=== PATIENT | female | born 1965 | race African-American/Black ===

== ENCOUNTER 2019-12-18 19:12 | Emergency (ER) | payer OTHER, SELFPAY ==
[2019-12-18 19:29] VITALS: BP 130/90; PULSE 88; RESP 18; TEMP 37.7; O2SAT 98
--- NOTE | 2019-12-18 19:56 | ED.LOWEXIN ---
HPI - Extremity Injury (Lower) General Chief Complaint: Extremity Injury, Lower Stated Complaint: Gout;Sinus Infection Time Seen by Provider: 12/18/19 19:48 Source: patient and RN notes reviewed Mode of arrival: ambulatory Limitations: no limitations History of Present Illness HPI Narrative: Patient presents today complaining of possible gout to the left great toe x2 days. Patient has history of gout, but has not had a flare in many years. She does note that catfish is a trigger for her gout, but ate some a few days ago anyway. She currently rates her pain 8/10 and has tried no [id number]-[id number] treatment prior to arrival. She also states that she has had some postnasal drip leading to a cough x3 days. Denies fever, shortness of breath, or any other symptoms. She has had a recent COVID test that was negative. She has to get tested weekly at her job at the [employer]. Related Data Home Medications Medication Instructions Recorded Confirmed aspirin 12/18/19 furosemide 12/18/19 lisinopril 12/18/19 metoprolol tartrate 12/18/19 Allergies Allergy/AdvReac Type Severity Reaction Status Date / Time No Known Allergies Allergy Verified 05/28/17 18:05 Review of Systems Review of Systems: Narrative: CONSTITUTIONAL: Denies body aches, fever, chills, or sweats. EYES: Denies visual changes, redness, or discharge. ENT: Denies rhinorrhea, congestion, sore throat, or otalgia.+ Postnasal drip CARDIOVASCULAR: Denies chest pain, palpitations, or edema. RESPIRATORY: Denies cough or dyspnea. GASTROINTESTINAL: Denies abdominal pain, nausea, vomiting, or diarrhea. GENITOURINARY: Denies dysuria or hematuria. SKIN: Denies rash, itching, or wounds. MUSCULOSKELETAL: Denies back pain, or myalgia. + Pain, swelling, and redness to the base of the left great toe. NEUROLOGIC: Denies headache, numbness, tingling, or weakness. PSYCH: Denies depression or anxiety. [facility] Past Medical History Medical History (Updated 12/18/19 @ 20:01 by Kassie Lerma, KETTLE CHIPPER, ) Congestive heart failure History of gout Hypertension Comments At time of signature, I have reviewed and agree with nursing past medical, surgical, social and family history unless otherwise noted. Please see nursing chart for further information. There is no relevant family history pertinent to the presenting complaint Exam Narrative: Exam Narrative: GENERAL: Well-appearing, over-nourished, and in no acute distress. HEAD: Normocephalic, atraumatic. EYES: EOMI. No redness or drainage. Conjunctivae normal. ENT: Mucous membranes pink and moist. Nares clear. No rhinorrhea. TMs normal bilaterally. Throat normal. Mild amount of postnasal drainage. Uvula midline. NECK: Normal AROM. Supple. No lymphadenopathy. CHEST: No respiratory distress. Clear to auscultation. HEART: Regular rate and rhythm. No murmur appreciated. Normal peripheral pulses. EXTREMITIES: Mild redness and edema to the base of the left great toe. Tender to palpation. Distal sensation intact. Capillary refill normal. Full range of motion with increased pain. No tenderness to the remainder of the foot or toes. SKIN: Warm, dry, no rash. Capillary refill normal. Normal skin turgor. NEURO: No focal deficits. Alert and oriented x3. Gait steady. PSYCH: Normal affect. No signs of depression or anxiety. Course Vital Signs Vital signs: Vital Signs Temperature 99.8 F H 12/18/19 19:29 Pulse Rate 88 12/18/19 19:29 Respiratory Rate 18 12/18/19 19:29 Blood Pressure 130/90 12/18/19 19:29 Pulse Oximetry 98 12/18/19 19:29 Temperature 99.8 F H 12/18/19 19:29 Pulse Rate 88 12/18/19 19:29 Respiratory Rate 18 12/18/19 19:29 Blood Pressure 130/90 12/18/19 19:29 Pulse Oximetry 98 12/18/19 19:29 Reviewed. Pt has been instructed to follow up with her PCP regarding her elevated blood pressure today. MDM - Extremity Injury (Lower) Differential Diagnosis Diffe
== END 2019-12-18 20:02 | disposition home or self-care (01) ==
PROVIDERS: Emergency Provider Nurse Practitioner; PCP Family Medicine
DX: M10.9 Gout, unspecified (principal); J30.9 Allergic rhinitis, unspecified; I10 Essential (primary) hypertension; I11.0 Hypertensive heart disease with heart failure; I50.9 Heart failure, unspecified
CPT/HCPCS: 99213; G0463

== ENCOUNTER 2019-12-30 19:08 | Emergency (ER) | payer OTHER, SELFPAY ==
--- NOTE | 2019-12-30 19:19 | ED.GENADULT ---
HPI - General Adult General Chief complaint: Upper Respiratory Infection Stated complaint: upper respiratory infection Time Seen by Provider: 12/30/19 19:19 Source: patient and RN notes reviewed Mode of arrival: ambulatory Limitations: no limitations History of Present Illness HPI narrative: This is a 54 years old female presents to the office for an evaluation of cough for one week. Cough is the same; has not worsen. She also reports sinus drainage with ears fullness. She tries Zyrtec with no relief. She has tested for COVID last week and it was negative. She did not take prednisone because she worries about lowering her immune system. I reviewed patient's previous visit. HPI - Extremity Injury (Lower) General Chief Complaint: Extremity Injury, Lower Stated Complaint: Gout;Sinus Infection Time Seen by Provider: 12/18/19 19:48 Source: patient and RN notes reviewed Mode of arrival: ambulatory Limitations: no limitations History of Present Illness HPI Narrative: Patient presents today complaining of possible gout to the left great toe x2 days. Patient has history of gout, but has not had a flare in many years. She does note that catfish is a trigger for her gout, but ate some a few days ago anyway. She currently rates her pain 8/10 and has tried no [id number]-pdz-pzqtzil treatment prior to arrival. She also states that she has had some postnasal drip leading to a cough x3 days. Denies fever, shortness of breath, or any other symptoms. She has had a recent COVID test that was negative. She has to get tested weekly at her job at the [employer]. Related Data Home Medications Medication Instructions Recorded Confirmed aspirin 12/18/19 furosemide 12/18/19 lisinopril 12/18/19 metoprolol tartrate 12/18/19 Allergies Allergy/AdvReac Type Severity Reaction Status Date / Time No Known Allergies Allergy Verified 05/28/17 18:05 Review of Systems Review of Systems: Narrative: CONSTITUTIONAL: Denies fever, chills ENT: Reports stuffy nose, sinus congestion and ears fullness. Denies sore throat. CARDIOVASCULAR: Denies chest pain, palpitation RESPIRATORY: Denies dyspnea, wheezing. Reports cough contribute to drainage GASTROINTESTINAL: Denies abdominal pain, nausea, vomiting, diarrhea. SKIN: Denies rash MUSCULOSKELETAL: Denies acute back pain NEUROLOGIC: Denies lightheaded All other systems reviewed are negative, except as documented in HPI. [facility] Past Medical History Medical History Congestive heart failure History of gout Hypertension Comments At time of signature, I agree with nursing past medical, surgical, social and family history. There is no relevant family history pertinent to the presenting complaint. Exam Narrative: Exam Narrative: GENERAL: This is a well-nourished, well-developed patient, in no apparent distress. Obese EYES: Sclera clear/white. Vision is grossly intact. EARS: External ears normal, auditory canals clear and without drainage, TMs normal without perforation, fluid bubbles noted. Hearing grossly intact. NOSE: External nose normal with no obvious nasal discharge, nares without redness, no rhinorrhea. THROAT: Mucous membranes moist, posterior pharynx not erythema/edematous with drainage. NECK: Neck supple, non-tender without lymphadenopathy, masses or thyromegaly. CARDIOVASCULAR: Regular rate and rhythm without murmurs, gallops, or rubs. RESPIRATORY: Clear to auscultation. Breath sounds equal bilaterally. No wheezes, rales, or rhonchi. GASTROINTESTINAL: Abdomen soft, non-tender, nondistended. Bowel sounds are active. No guarding. SKIN: warm, intact with no suspicious lesions or rash, good texture and turgor. NEURO: awake, alert, and oriented to person, place and time. There were no obvious focal neurologic abnormalities. Steady gait [place] Coma Scale Eye Opening: Spontaneous 4 [place] Coma Scale Motor: [employer]
[2019-12-30 19:21] VITALS: BP 144/80; PULSE 86; RESP 16; TEMP 36.4; O2SAT 100
== END 2019-12-30 19:41 | disposition home or self-care (01) ==
PROVIDERS: Emergency Provider Nurse Practitioner; PCP Family Medicine
DX: J01.41 Acute recurrent pansinusitis (principal); I11.0 Hypertensive heart disease with heart failure; I50.9 Heart failure, unspecified; M10.9 Gout, unspecified
CPT/HCPCS: 99213; G0463

== ENCOUNTER 2020-01-30 16:28 | Emergency (ER) | payer OTHER, SELFPAY ==
--- NOTE | 2020-01-30 16:37 | ED.URI ---
HPI - URI/Sore Throat General Chief Complaint: Upper Respiratory Infection Stated Complaint: possible sinus infection Time Seen by Provider: 01/30/20 16:39 Source: patient and RN notes reviewed Mode of arrival: ambulatory Limitations: no limitations History of Present Illness HPI Narrative: 53-year-old female presents with concern for nasal congestion, sinus drainage, postnasal drainage, foul tasting drainage. Reports symptoms started approximately 1 month ago, she was treated with antihistamines, cough medicines. Reports symptoms improved but did not resolve. Reports she has been taking Zyrtec daily and Flonase daily. She denies fever, chills, malaise. Reports she gets cover test weekly, and has not had a positive cover test. MD elicited complaint: nasal congestion Related Data Home Medications Medication Instructions Recorded Confirmed aspirin 81 mg PO DAILY 12/18/19 01/30/20 furosemide 40 mg PO DAILY 12/18/19 01/30/20 lisinopril 40 mg PO DAILY 12/18/19 01/30/20 metoprolol tartrate 25 mg PO BID 12/18/19 01/30/20 Allergies Allergy/AdvReac Type Severity Reaction Status Date / Time No Known Allergies Allergy Verified 01/30/20 16:35 Review of Systems Review of Systems: Narrative: CONSTITUTIONAL: Denies malaise, chills, sweats, or fever. EYES: Denies visual changes, redness, or discharge. ENT: Reports rhinorrhea, congestion, sinus pain, drainage. Denies otalgia and sore throat. CARDIOVASCULAR: Denies chest pain, palpitations, or edema. RESPIRATORY: Reports cough. Denies dyspnea. GASTROINTESTINAL: Denies abdominal pain, nausea, vomiting, diarrhea SKIN: Denies rash or itching. MUSCULOSKELETAL: Denies myalgia. NEUROLOGIC: Denies headache. All systems reviewed & are unremarkable except as noted in HPI and below PMFSH Comments At time of signature, agree with nursing past medical, surgical, social and family history. There is no relevant family history pertinent to the presenting complaint Exam Narrative: Exam Narrative: GENERAL: Well-appearing, well-nourished, and in no acute distress. HEAD: Normocephalic EYES: PERRLA, conjunctivae clear ENT: Nares clear, turbinates edematous and erythematous, clear discharge. Mucous membranes moist. TM pearly newsome with dull light reflex bilaterally; no tragal tenderness. Oropharynx not erythematous without lesions. Tonsils not enlarged and without exudate, no drooling, no hoarseness, no trismus, uvula midline. NECK: Supple. No lymphadenopathy CHEST: Clear to auscultation, breath sounds equal. No wheezing, rhonchi, rales, or stridor. No respiratory distress, speaks in full sentences. HEART: Regular rate and rhythm. No murmur heard. SKIN: Warm, dry, no rash. NEURO: Alert and oriented x3. PSYCH: Normal mood and affect Course Course Emergency Course: Patient is aware of diagnosis, understands and agrees to treatment plan. Anticipatory guidance given. Patient agrees to follow-up as directed and is aware of reasons to seek care at the emergency department. Portions of this record may have been created with voice recognition software Vital Signs Vital signs: Vital Signs Temperature 98.7 F 01/30/20 16:39 Pulse Rate 86 01/30/20 16:39 Respiratory Rate 16 01/30/20 16:39 Blood Pressure 152/97 H 01/30/20 16:39 Pulse Oximetry 100 01/30/20 16:39 Temperature 98.7 F 01/30/20 16:39 Pulse Rate 86 01/30/20 16:39 Respiratory Rate 16 01/30/20 16:39 Blood Pressure 152/97 H 01/30/20 16:39 Pulse Oximetry 100 01/30/20 16:39 Reviewed. Patient has history of hypertension MDM - URI/Sore Throat MDM Narrative Medical decision making narrative: Differential diagnosis considered: Harkins virus, strep pharyngitis, allergic rhinitis, upper respiratory tract infection, sinusitis, rhinosinusitis, nasopharyngitis. viral pharyngitis, otitis media, otitis externa, pneumonia, bronchitis, viral cough syndrome, viral syndrome, and influenza. Exam findings show no acute concerns or mendieta
[2020-01-30 16:39] VITALS: BP 152/97; PULSE 86; RESP 16; TEMP 37.1; O2SAT 100
== END 2020-01-30 16:51 | disposition home or self-care (01) ==
PROVIDERS: Emergency Provider Nurse Practitioner
DX: J01.90 Acute sinusitis, unspecified (principal); I11.0 Hypertensive heart disease with heart failure; I50.9 Heart failure, unspecified; M10.9 Gout, unspecified
CPT/HCPCS: 99213; G0463

== ENCOUNTER 2020-11-24 18:37 | Emergency (ER) | payer SELFPAY ==
[2020-11-24 18:47] VITALS: BP 141/91; PULSE 107; RESP 16; TEMP 36.9; O2SAT 98
--- NOTE | 2020-11-24 19:13 | ED.GENADULT ---
HPI - General Adult General Chief complaint: Upper Respiratory Infection Stated complaint: COUGH Time Seen by Provider: 11/24/20 19:13 Source: patient and RN notes reviewed Mode of arrival: ambulatory Limitations: no limitations History of Present Illness HPI narrative: 55-year-old female presents with complaints of upper respiratory infection, facial congestion, facial pain, and intermittent cough for the past 3 days. Priscilla reports increasing symptoms daily with sore throat starting today. Elderberry cough medicine and throat lozenges without relief. No facial swelling. Dry cough without chest congestion. Nasal congestion and rhinorrhea. No chest pain or shortness of breath. Exacerbating factors consist of being outside while grass being cut and smoke exposure. Denies fever or chills. Denies nausea, vomiting, and abdominal pain. Tolerating po intake well. Remains active. The patient reports she has not been diagnosed with COVID-19. The patient reports she received 2 Moderna-19 vaccines. The patient reports she is not waiting for the results of a COVID-19 lab test. The patient reports she does not have sweats, weakness, or fatigue. The patient reports she does not have any loss of taste or smell and diarrhea. Denies recent traveling. Denies concerns for COVID-19 or exposures. At this time, the patient is not suspected of having COVID-19. Some parts of this dictation were generated by voice recognition software and may contain typographical and/or grammatical inaccuracies. Related Data Home Medications Medication Instructions Recorded Confirmed aspirin 81 mg PO DAILY 12/18/19 01/30/20 furosemide 40 mg PO DAILY 12/18/19 01/30/20 lisinopril 40 mg PO DAILY 12/18/19 01/30/20 metoprolol tartrate 25 mg PO BID 12/18/19 01/30/20 amlodipine 11/24/20 meclizine mg 11/24/20 sertraline mg 11/24/20 Allergies Allergy/AdvReac Type Severity Reaction Status Date / Time No Known Allergies Allergy Verified 01/30/20 16:35 Review of Systems Review of Systems: Narrative: CONSTITUTIONAL: Denies fever, chills, sweats. EYES: Denies visual changes, redness, discharge. ENT: Complains of rhinorrhea, congestion, sore throat. Denies otalgia. CARDIOVASCULAR: Denies chest pain, palpitations, edema. RESPIRATORY: Denies dyspnea, wheezing. Complaints of cough. GASTROINTESTINAL: Denies abdominal pain, nausea, vomiting, diarrhea. SKIN: Denies rash or itching. MUSCULOSKELETAL: Denies acute back pain, joint pain, or myalgia. NEUROLOGIC: Denies numbness or focal weakness. PSYCHIATRIC: Denies anxiety or depression. All systems reviewed & are unremarkable except as noted in HPI and below. [facility] Past Medical History Medical History (Updated 11/25/20 @ 00:01 by Jose Rodriguez) Back pain Congestive heart failure History of gout Hypertension Morbid obesity Surgical History Surgical History (Updated 11/24/20 @ 19:48 by FAUSTO Martinez) H/O left wrist surgery History of hysterectomy History of spinal surgery Family History Family History (Updated 11/24/20 @ 19:47 by FAUSTO Martinez) Father Hypertension Diabetes mellitus Heart disease Mother Breast cancer Hypertension Heart disease Sibling Breast cancer Social History Social History (Updated 11/24/20 @ 19:46 by FAUSTO Martinez) Smoking status: Never smoker Tobacco type: cigarettes Second hand tobacco smoke exposure: No Alcohol intake: never Substance use: never Living arrangements: with family Occupation/Education: occupation Gender identity (if verbalized by the patient): Female Sexual Orientation (if Verbalized by the Patient): Straight or Heterosexual Comments At time of signature, agree with the nurse past medical, surgical, social, and family history. There is no relevant family history pertinent to the presenting complaint. Exam Narrative: Exam Narrative: GENERAL: This is a well-nourished,
== END 2020-11-24 19:43 | disposition home or self-care (01) ==
PROVIDERS: Emergency Provider Nurse Practitioner Family
DX: J01.90 Acute sinusitis, unspecified (principal); H65.193 Other acute nonsuppurative otitis media, bilateral; I11.0 Hypertensive heart disease with heart failure; I50.9 Heart failure, unspecified; E66.01 Morbid (severe) obesity due to excess calories; Z68.43 Body mass index [BMI] 50.0-59.9, adult; M81.0 Age-related osteoporosis without current pathological fracture
CPT/HCPCS: 99213; G0463

== ENCOUNTER 2020-12-25 10:30 | Emergency (ER) | payer OTHER, SELFPAY ==
[2020-12-25 10:45] VITALS: BP 127/72; PULSE 83; RESP 18; TEMP 36.1; O2SAT 98
--- NOTE | 2020-12-25 10:57 | ED.SKABFB ---
HPI - Skin/Abscess/Foreign Bdy General Chief complaint: Skin/Abscess/Foreign Body Stated complaint: Rash Time Seen by Provider: 12/25/20 10:57 Source: patient Mode of arrival: ambulatory History of Present Illness HPI narrative: Priscilla Salgado is a 55 yo female with a PMH of congestive heart failure and hypertension who comes to [facility] with complaints of a skin breakdown allergic reaction of her perineal area after using the wrong detergent. She has tried using Vaseline and A&E ointment without success Related Data Home Medications Medication Instructions Recorded Confirmed aspirin 325 mg PO DAILY 12/18/19 12/25/20 furosemide 40 mg PO DAILY 12/18/19 12/25/20 lisinopril 40 mg PO DAILY 12/18/19 12/25/20 metoprolol tartrate 25 mg PO BID 12/18/19 12/25/20 amlodipine 5 mg PO DAILY 11/24/20 12/25/20 sertraline 50 mg PO DAILY 11/24/20 12/25/20 Allergies Allergy/AdvReac Type Severity Reaction Status Date / Time No Known Allergies Allergy Verified 01/30/20 16:35 Review of Systems Review of Systems: Narrative: CONSTITUTIONAL: Denies fever, chills, sweats. EYES: Denies visual changes, redness, discharge. ENT: Denies rhinorrhea, congestion, sore throat, otalgia. CARDIOVASCULAR: Denies chest pain, palpitations, edema. RESPIRATORY: Denies dyspnea, wheezing, cough GASTROINTESTINAL: Denies abdominal pain, nausea, vomiting, diarrhea. GENITOURINARY: Denies dysuria, hematuria, abnormal discharge SKIN: Has rash and redness in her perineal area NEUROLOGIC: Denies numbness, or focal weakness. PSYCHIATRIC: Denies anxiety or depression. [facility] Past Medical History Medical History Back pain Congestive heart failure History of gout Hypertension Morbid obesity Surgical History Surgical History H/O left wrist surgery History of hysterectomy History of spinal surgery Family History Family History Father Hypertension Diabetes mellitus Heart disease Mother Breast cancer Hypertension Heart disease Sibling Breast cancer Social History Social History (Reviewed 12/25/20 @ 11:02 by SUJATA Jackson Smoking status: Never smoker Tobacco type: cigarettes Second hand tobacco smoke exposure: No Alcohol intake: never Substance use: never Gender identity (if verbalized by the patient): Female Comments At time of signature, I agree with nursing past medical, surgical, social and family history. There is no relevant family history pertinent to the presenting complaint. Exam Narrative: Exam Narrative: GENERAL: This is a well-nourished, well-developed patient, in mild distress. HEAD: normocephalic, atraumatic. EYES: Sclera clear/white. Vision is grossly intact. EARS: External ears normal, Hearing grossly intact. NOSE: External nose normal without nasal discharge, nares without redness, no rhinorrhea. THROAT: Mucous membranes moist, NECK: Neck supple, non-tender CARDIOVASCULAR: Regular rate and rhythm without murmurs, gallops, or rubs. RESPIRATORY: Clear to auscultation. Breath sounds equal bilaterally. No wheezes, rales, or rhonchi. GASTROINTESTINAL: Abdomen soft, non-tender, large pannus-any vaginal discharge SKIN: warm, intact with erythematous papular rash in her perineal area NEURO: awake, alert, and oriented to person, place and time. There were no obvious focal neurologic abnormalities. Steady gait EXTREMITIES: Normal range of motion. BACK: Nontender without deformity Course Course Emergency Course: Patient comes to [facility] with complaints of rash to perineal area after using the wrong detergent she has tried to use Vaseline and the ointment with no improvement Started on Diflucan, nystatin, and Medrol Dosepak, pepcid Vital Signs Vital signs: Vital Signs Temperature 96.9 F L 12/25/20 10:45 Pu
[2020-12-25] MEDS: predniSONE 20 MG TABLET 60 MG PO (11:14)
== END 2020-12-25 11:15 | disposition home or self-care (01) ==
PROVIDERS: Emergency Provider Nurse Practitioner
DX: L23.5 Allergic contact dermatitis due to other chemical products (principal); I11.0 Hypertensive heart disease with heart failure; I50.9 Heart failure, unspecified; E66.01 Morbid (severe) obesity due to excess calories; Z68.44 Body mass index [BMI] 60.0-69.9, adult; Z79.82 Long term (current) use of aspirin
CPT/HCPCS: 99213; G0463; J7512

== ENCOUNTER 2021-01-22 02:29 | Emergency (ER) | payer OTHER, SELFPAY ==
--- NOTE | ~2021-01-22 | XR_ITS ---
XR knee LT 3V DATE: 01/22/2021 03:00 INDICATION: Injury. Left knee pain. TECHNIQUE: 4 views including crosstable lateral COMPARISON: 01/23/2017 left knee FINDINGS: There is severe osteoarthritic change at the medial compartment. There is particular spurri ng at the patellofemoral and to a lesser extent lateral compartments. No fracture or dislocation or joint effusion. No periosteal reaction or bone destruction. No radiopaque intra-articular loose body or chondrocalcinosis. Calcaneal enthesopathy at quadriceps and patellar tendon insertions. No radiopaque intra-articular loose body or chondrocalcinosis. 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 IMPRESSION: Tricompartment osteoarthritis, most pronounced at medial compartmen t
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
[2021-01-22 02:34] VITALS: PULSE 95; RESP 18; TEMP 36.6; O2SAT 100
[2021-01-22 02:35] VITALS: BP 160/92
[2021-01-22 02:46] VITALS: BP 155/83
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
[2021-01-22] MEDS: NAPROXEN 500 MG TABLET PO (03:15)
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
[2021-01-22 05:05] VITALS: BP 155/83; PULSE 87; RESP 18; TEMP 36.2; O2SAT 98
== END 2021-01-22 05:11 | disposition home or self-care (01) ==
PROVIDERS: Emergency Provider Emergency Medicine
DX: S90.32XA Contusion of left foot, initial encounter (principal); M25.562 Pain in left knee; I11.0 Hypertensive heart disease with heart failure; I50.9 Heart failure, unspecified; Z79.82 Long term (current) use of aspirin; W22.8XXA Striking against or struck by other objects, initial encounter; Y92.512 Supermarket, store or market as the place of occurrence of the external cause
CPT/HCPCS: 73562; 73630; 99284; A9270

== ENCOUNTER 2022-10-08 15:20 | Emergency (ER) | payer OTHER, SELFPAY ==
--- NOTE | 2022-10-08 15:24 | ED.URI ---
HPI - URI/Sore Throat General Chief Complaint: Upper Respiratory Infection Stated Complaint: Sinus Infection Time Seen by Provider: 10/08/22 15:31 Source: patient, RN notes reviewed and old records reviewed Mode of arrival: ambulatory Limitations: no limitations History of Present Illness HPI Narrative: 57-year-old female presents to the [facility] with concerns of a sinus infection. Started with a runny nose on Saturday, 3 days ago. Got worse on Saturday. Reports cough, runny nose, postnasal drip. Denies any fevers, chest pain, abdominal pain. No shortness of breath. MD elicited complaint: rhinorrhea and nasal congestion Onset (ago): day(s) (3) Related Data Home Medications Medication Instructions Recorded Confirmed aspirin 325 mg PO DAILY 12/18/19 10/08/22 lisinopril 40 mg tablet 40 mg PO DAILY 12/18/19 10/08/22 metoprolol tartrate 25 mg tablet 25 mg PO BID 12/18/19 10/08/22 amlodipine 5 mg tablet 5 mg PO DAILY 11/24/20 10/08/22 sertraline 50 mg tablet 50 mg PO DAILY 11/24/20 10/08/22 metformin 1,000 mg tablet 1,000 mg DIRECTED 10/08/22 10/08/22 semaglutide 0.25 mg or 0.5 mg (2 0.25 mg subcut DIRECTED 10/08/22 10/08/22 mg/3 mL) subcutaneous pen injector (Ozempic) Allergies Allergy/AdvReac Type Severity Reaction Status Date / Time ciprofloxacin [From Cipro] Allergy Intermediate Rash Verified 10/08/22 15:32 Review of Systems Review of Systems: All systems reviewed & are unremarkable except as noted in HPI and below Constitutional: Constitutional: Reports no additional constitutional complaints Eyes: Eyes: Reports no additional eye complaints ENT: Reports as per HPI Cardiovascular: Cardiovascular: Reports no additional cardiovascular complaints, Denies chest pain and Denies dyspnea Respiratory: Respiratory: Reports no additional respiratory complaints, Denies chest congestion, Denies cough and Denies dyspnea Gastrointestinal: Gastrointestinal: Reports no additional gastrointestinal complaints, Denies abdominal pain, Denies nausea and Denies vomiting Musculoskeletal: Musculoskeletal: Reports no additional musculoskeletal complaints Integumentary/Breasts: Skin/Breast: Reports system reviewed and no additional complaints, except as docu Neurologic: Reports system reviewed and no additional complaints, except as documented Psychiatric: Psychiatric: Reports no additional psychiatric complaints Allergic/Immunologic: Allergic/Immunologic: Reports no additional allergic/immunologic complaints PMFSH Past Medical History Medical History Back pain Congestive heart failure History of gout Hypertension Morbid obesity Surgical History Surgical History H/O left wrist surgery History of hysterectomy History of spinal surgery Family History Family History Father Hypertension Diabetes mellitus Heart disease Mother Breast cancer Hypertension Heart disease Sibling Breast cancer Social History Social History Smoking status: Never smoker Tobacco type: cigarettes Second hand tobacco smoke exposure: No Alcohol intake: never Substance use: never Living arrangements: with family Occupation/Education: occupation Gender identity (if verbalized by the patient): Female Sexual Orientation (if Verbalized by the Patient): Straight or Heterosexual Comments At the time of my signature, I reviewed and agree with the nursing past medical, surgical, social, and family history. There is no relevant family history pertinent to the patient complaint. Exam Const: General: cooperative, healthy appearing, comfortable, no acute distress, well developed, alert and well nourished Nutritional Appearance: well nourished Orientation/consciousness: patient
[2022-10-08 15:27] VITALS: BP 117/98; PULSE 95; RESP 16; TEMP 36.6; O2SAT 99
[2022-10-08 15:32] VITALS: BP 117/98; PULSE 95; RESP 16; TEMP 36.6; O2SAT 99
== END 2022-10-08 15:41 | disposition home or self-care (01) ==
PROVIDERS: Emergency Provider Nurse Practitioner
DX: J06.9 Acute upper respiratory infection, unspecified (principal); J32.9 Chronic sinusitis, unspecified; I11.0 Hypertensive heart disease with heart failure; I50.9 Heart failure, unspecified; E66.01 Morbid (severe) obesity due to excess calories; Z68.43 Body mass index [BMI] 50.0-59.9, adult; Z79.82 Long term (current) use of aspirin
CPT/HCPCS: 99213; G0463

== ENCOUNTER 2023-08-12 15:24 | Emergency (ER) | payer OTHER, SELFPAY ==
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
[2023-08-12 15:28] VITALS: BP 139/85; PULSE 82; RESP 20; TEMP 36.1; O2SAT 95
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
[2023-08-12] MEDS: TETANUS,DIPHTHERIA,AC PERTUSSIS ADULT (0.5 ML) BOOSTRIX IM (16:39)
[2023-08-12] MEDS: HYDROcodone/acetaminophen (*CRX) 5-325 MG TABLET 1 TAB PO (16:39)
[2023-08-12 18:45] VITALS: BP 131/84; PULSE 82; RESP 20; TEMP 36.4; O2SAT 97
== END 2023-08-12 18:48 | disposition home or self-care (01) ==
PROVIDERS: Emergency Provider Physician Assistant
DX: S60.211A Contusion of right wrist, initial encounter (principal); S80.12XA Contusion of left lower leg, initial encounter; S80.812A Abrasion, left lower leg, initial encounter; R10.32 Left lower quadrant pain; R10.31 Right lower quadrant pain; Z23 Encounter for immunization; I50.9 Heart failure, unspecified; I11.0 Hypertensive heart disease with heart failure; E66.01 Morbid (severe) obesity due to excess calories; Z68.42 Body mass index [BMI] 45.0-49.9, adult; M10.9 Gout, unspecified; M17.12 Unilateral primary osteoarthritis, left knee; Z90.710 Acquired absence of both cervix and uterus; Z79.82 Long term (current) use of aspirin; Z79.85 Long-term (current) use of injectable non-insulin antidiabetic drugs; Z79.84 Long term (current) use of oral hypoglycemic drugs; V49.40XA Driver injured in collision with unspecified motor vehicles in traffic accident, initial encounter
CPT/HCPCS: 70450; 71260; 72125; 73110; 73130; 73590; 74177; 90471; 90715; 99284; A9270; Q9967